=== PATIENT | male | born 1995 | race Caucasian/White ===

== ENCOUNTER → 2016-07-28 | Outpatient (CLI) | payer BC ==
--- NOTE | 2016-07-28 16:22 | DIAGNOSTIC IMAGING REPORT ---
MAXILLOFACIAL CT CT DOSE: 644.06 mGy.cm HISTORY: Left eye trauma. TECHNIQUE: Multiaxial CT images of the maxillofacial region were performed and reformatted in the coronal plane without the use of contrast. COMPARISON: None. FINDINGS: The visualized cervical spine, skull base, pterygoid plates, nasal bones, lamina papyracea, orbital floors, mandible, and zygomatic arches are intact. No fractures. Posterior fusion defect at C1. Mild right nasal septal deviation. The globes are intact. The optic nerves and extraocular muscles are normal in caliber. The right retrobulbar fat is intact. There is a 19 x 11 mm lobular intermediate density structure within the retrobulbar fat inferior to the optic nerve. This abuts the posterior aspect of the globe and the optic nerve without significant displacement. IMPRESSION: 1. No fractures within the maxillofacial region. 2. A 19 x 11 mm lobular intermediate density structure within the left retrobulbar fat. This abuts the posterior aspect of the globe and the inferior aspect of the optic nerve without significant displacement. Given the history of prior trauma this favors a subacute hematoma. However, a mass could also have a similar appearance. Follow-up ophthalmologic consultation as well as repeat CT in one month is recommended to ensure resolution and to exclude the possibility of a mass. Electronically signed by: Willis Alonso M.D. 07/28/2016 4:21 PM Dictated Date/Time: 07/28/2016 4:07 PM
== END | disposition home or self-care (01) ==
LOC: C.CTS 15:10
PROVIDERS: ATTEND Optometrist
DX: H53.2 Diplopia (principal)

== ENCOUNTER → 2016-08-22 | Outpatient (CLI) | payer BC ==
[~2016-08-22] MED LIST: OPTIRAY 320 IV PRN
--- NOTE | 2016-08-22 15:41 | DIAGNOSTIC IMAGING REPORT ---
CT FACIAL-MAXILLOFACIAL WITH CT DOSE: 561.29 mGycm CLINICAL HISTORY: Retro-orbital mass. Double vision. TECHNIQUE: The patient was scanned following administration of 115 cc of Optiray 320. COMPARISON STUDY: 07/28/2016 FINDINGS: No facial fractures are visualized. There is no pathologic adenopathy. There is an 11 mm left-sided retrobulbar mass which abuts the posterior aspect of the globe. The mass is immediately inferior to the optic nerve. The mass appears slightly smaller than on the preceding study. There is no definite enhancement. IMPRESSION: 1. Moderate interval decrease in the size of the intermediate density nonenhancing left retrobulbar mass. The mass again abuts the posterior aspect of the globe. Given the interval decrease in size, it is possible this represents a resolving hematoma. Ophthalmologic follow-up and repeat CT scanning is recommended to document resolution. Electronically signed by: Jayant Peterson M.D. 08/22/2016 3:40 PM Dictated Date/Time: 08/22/2016 3:32 PM
== END | disposition home or self-care (01) ==
LOC: C.CTS 14:34
PROVIDERS: ATTEND Family Medicine
DX: H11.32 Conjunctival hemorrhage, left eye (principal); S05.02XA Injury of conjunctiva and corneal abrasion without foreign body, left eye, initial encounter; X58.XXXA Exposure to other specified factors, initial encounter; H53.2 Diplopia; H05.89 Other disorders of orbit